=== PATIENT | female | born 1995 | race American Indian/Alaskan Native ===

== ENCOUNTER 2018-05-03 07:14 | Emergency (ER) | payer MEDICAID ==
[2018-05-03 07:24] VITALS: BP 148/96
[2018-05-03 07:52] LABS: Basophils # (Auto) 0.1 K/mm3 (0.0-0.1); Basophils % (Auto) 0.6 % (0.0-1.8); Eosinophils # (Auto) 0.2 K/mm3 (0.0-0.4); Eosinophils % (Auto) 1.7 % (0.0-4.3); Hemoglobin 14.1 gm/dl (10.1-14.3); Lymphocytes % (Auto) 9.6 % (13.4-35.0); Mean Corpuscular HGB Conc 34 % (30-34); Mean Corpuscular Hemoglobin 32 pg (28-32); Mean Corpuscular Volume 92 fl (79-97); Monocytes # (Auto) 0.7 K/mm3 (0.0-0.8); Monocytes % (Auto) 6.8 % (0.0-7.3); Platelet Count 264 K/mm3 (140-440); Red Blood Count 4.44 M/mm3 (3.65-5.03); Red Cell Distribution Width 13.1 % (13.2-15.2)
--- NOTE | 2018-05-03 08:03 | Emergency Department Report ---
ED Female HPI - General Chief complaint: Urogenital-Female Stated complaint: Pelvic Pain Time Seen by Provider: 05/03/18 07:46 Source: patient Mode of arrival: Ambulatory Limitations: No Limitations - History of Present Illness Initial comments: This is a 22-year-old female nontoxic, well nourished in appearance, no acute signs of distress presents to the ED with c/o of pelvic pain and vaginal discharge intermittent for 5 months. Patient also stated she has dysuria for 5 months as well. Patient denies any vaginal pain or swelling. Patient denies any vaginal ulcers or lesions. Patient denies any nausea, vomiting, chest pain , shortness of breathe, fever, chills, headache, back pain, numbness, tingling, stiff neck. Patient denies any urinary symptoms. Patient stated she is concerned about STD and wants empirical treatment. Patient denies any allergies or PMH. MD Complaint: vaginal discharge, dysuria, pelvic pain, possible STD -: month(s) (5) Radiation: non-radiating Severity: mild Severity scale (0 -10): 8 Quality: cramping Consistency: intermittent Improves with: none Worsens with: none Are you Now?: No Last Menstrual Period: 04/24/18 EDC: 01/29/19 Associated Symptoms: vaginal discharge, dysuria. denies: vaginal bleeding, abdominal pain, nausea/vomiting, fever/chills, headaches, loss of appetite, hematuria, rash, seizure, shortness of breath, syncope, weakness - Related Data Sexually active: Yes Previous Rx's Medication Instructions Recorded Last Taken Type Fluconazole [Diflucan] 150 mg PO ONCE #1 tablet 05/03/18 Unknown Rx Ibuprofen [Motrin] 600 mg PO Q8H PRN #30 tablet 05/03/18 Unknown Rx Allergies Allergy/AdvReac Type Severity Reaction Status Date / Time No Known Allergies Allergy Unverified 05/03/18 07:24 ED Review of Systems ROS: Stated complaint: Pelvic Pain Other details as noted in HPI Constitutional: denies: chills, fever Eyes: denies: eye pain, eye discharge, vision change ENT: denies: ear pain, throat pain Respiratory: denies: cough, shortness of breath, wheezing Cardiovascular: denies: chest pain, palpitations Endocrine: no symptoms reported Gastrointestinal: abdominal pain (pelvic). denies: nausea, vomiting, diarrhea Genitourinary: dysuria, discharge. denies: urgency, frequency, hematuria Musculoskeletal: denies: back pain, joint swelling, arthralgia Skin: denies: rash, lesions Neurological: denies: headache, weakness, paresthesias Psychiatric: denies: anxiety, depression Hematological/Lymphatic: denies: easy bleeding, easy bruising ED Past Medical Hx - Past Medical History Previous Medical History?: Yes Additional medical history: Vaginal delivery x 1 - Surgical History Past Surgical History?: No - Social History Smoking Status: Current Every Day Smoker Substance Use Type: Alcohol, Marijuana - Medications Home Medications: Home Medications Medication Instructions Recorded Confirmed Last Taken Type Fluconazole [Diflucan] 150 mg PO ONCE #1 tablet 05/03/18 Unknown Rx Ibuprofen [Motrin] 600 mg PO Q8H PRN #30 tablet 05/03/18 Unknown Rx ED Physical Exam - General Limitations: No Limitations General appearance: alert, in no apparent distress - Head Head exam: Present: atraumatic, normocephalic - Eye Eye exam: Present: normal appearance Pupils: Present: normal accommodation - ENT ENT exam: Present: normal exam, mucous membranes moist - Neck Neck exam: Present: normal inspection, full ROM. Absent: tenderness, meningismus, lymphadenopathy - Respiratory Respiratory exam: Present: normal lung sounds bilaterally. Absent: respiratory distress, wheezes, rales, rhonchi, stridor, chest wall tenderness, accessory muscle use, decreased breath sounds, prolonged expiratory - Cardiovascular Cardiovascular Exam: Present: regular rate, normal rhythm, normal heart sounds. Absent: irregular rhythm, systolic murmur, diastolic murmur, rubs, gallop - GI/Abdominal GI/Abdominal exam: Present: soft, tenderness (pelvic bilateral), normal bowel sounds. Absent: distended, guarding, rebound, rigid, diminished bowel sounds - Expanded GI/Abdominal Exam Expanded GI/Abdominal exam: Absent: psoas sign, obturator sign, heel tap sign, Rosen's sign, Rovsing's sign, tenderness at Mcburney's Point, ascites - Rectal Rectal exam: Present: deferred - External exam: Present: normal external exam, other (manager sourcing Guerda RN present during exam). Absent: erythema, swelling, lesions, lacerations, ecchymosis, bleeding Speculum exam: Present: normal speculum exam, cervical discharge, other ( manager sourcing Guerda RN present during exam). Absent: erythema, vaginal discharge, vaginal bleeding, foreign body, tissue, laceration Bi-manual exam: Present: normal bi-manual exam, other (manager sourcing Guerda RN present during exam). Absent: cervical motion tendernes, adnexal tenderness, adnexal mass, uterine enlargement, uterine tenderness - Extremities Exam Extremities exam: Present: normal inspection, full ROM, normal capillary refill - Back Exam Back exam: Present: normal inspection, full ROM. Absent: tenderness, CVA tenderness (R), CVA tenderness (L), muscle spasm, paraspinal tenderness, vertebral tenderness, rash noted - Neurological Exam Neurological exam: Present: alert, oriented X3, normal gait - Psychiatric Psychiatric exam: Present: normal affect, normal mood - Skin Skin exam: Present: warm, dry, intact, normal color. Absent: rash ED Course Vital Signs 05/03/18 07:18 Temperature 98.5 F Pulse Rate 116 H Respiratory 20 Rate Blood Pressure 148/96 O2 Sat by Pulse 98 Oximetry - Reevaluation(s) Reevaluation #1: 05/03/18 08:06 Patient is speaking in full sentences with no signs of distress noted. ED Medical Decision Making - Lab Data Result diagrams: 05/03/18 07:41 05/03/18 07:40 - Medical Decision Making This is a 22-year-old female that presents with possible STD, yeast, and bilateral ovarian cysts. Patient is stable was examined by me. There is no abdominal tenderness. No pelvic pain. UA obtained. Wet prep obtained. Gonorrhea chlamydia swab pending. US pelvic and transvaginal obtained and dictated by the radiologist. Pt is notified of the US reprot. Patient was instructed to return in 2 days for GC results. Patient wanted empirical treatment so patient received 1 g Rocephin and 1 g of azithromycin by mouth. Patient was instructed to Follow-up with a primary care doctor in 3-5 days or if symptoms worsen and continue return to emergency room as soon as possible. At time of discharge, the patient does not seem toxic or ill in appearance. No acute signs of distress noted. Patient agrees to discharge treatment plan of care. No further questions noted by the patient. Critical care attestation.: If time is entered above; I have spent that time in minutes in the direct care of this critically ill patient, excluding procedure time. ED Disposition Clinical Impression: Yeast vaginitis, Possible exposure to STD Ovarian cyst Qualifiers: Laterality: bilateral Qualified Code(s): N83.201 - Unspecified ovarian cyst, right side; N83.202 - Unspecified ovarian cyst, left side Disposition: TO HOME OR SELFCARE Is pt being admited?: No Does the pt Need Aspirin: No Condition: Stable Instructions: Vulvovaginal Candidiasis (ED), Ovarian Cyst (ED) Additional Instructions: Follow-up with a primary care/sales center manager doctor in 3-5 days or if symptoms worsen and continue return to emergency room as soon as possible. Prescriptions: Fluconazole [Diflucan] 150 mg PO ONCE #1 tablet Ibuprofen [Motrin] 600 mg PO Q8H PRN #30 tablet PRN Reason: Pain Referrals: PRIMARY CAREMD [Primary Care Provider] - 3-5 Days SUGEY JURADO MD [Staff Physician] - 3-5 Days VIRY KELLY MD [Staff Physician] - 3-5 Days [facility] [Provider Group] - 3-5 Days Forms: Work/School Release Form(ED)
[2018-05-03] MEDS ORDERED: ZITHROMAX PO ONE (08:22)
[2018-05-03] MEDS ORDERED: ROCEPHIN IM ONE (08:22)
[2018-05-03] MEDS ORDERED: XYLOCAINE 1% MPF 5 mL INFILTRATI ONE (08:22)
[2018-05-03 08:42] LABS: Alanine Aminotransferase 13 units/L (7-56); Albumin 3.9 g/dL (3.9-5); BUN/Creatinine Ratio 9; Blood Urea Nitrogen 7 mg/dL (7-17); Calcium 9.1 mg/dL (8.4-10.2); Hemolysis Index 8
[2018-05-03 08:48] LABS: Bilirubin,Urine NEG (Negative); Blood,Urine NEG (Negative); Color,Urine Yellow (Yellow); Mucus,Urine 1+ /HPF; Protein,Urine <15 mg/dL mg/dL (Negative)
[2018-05-03] MEDS ORDERED: MOTRIN PO ONE (09:55)
[2018-05-03] MEDS ORDERED: ZOFRAN ODT PO ONE (09:55)
[2018-05-03] MEDS ORDERED: TORADOL IM ONE (10:05)
--- NOTE | 2018-05-03 10:17 | Ultrasound Report ---
ULTRASOUND PELVIC COMPLETE ULTRASOUND TRANSVAGINAL HISTORY: Pelvic pain. COMPARISON: None. TECHNIQUE: Transabdominal and transvaginal ultrasound with color doppler interrogation. FINDINGS: Uterus: The uterus is anteverted. The uterus measures 8.5 x 3.9 x 5.8 cm. No evidence for uterine fibroids. The cervix is unremarkable. Endometrium: 4 mm. No abnormality noted. Right ovary: 3.2 x 2.8 x 2.5 cm. A 1.6 cm simple right ovarian cyst is identified. Left ovary: 2.7 x 1.7 x 2.2 cm. A 1.3 cm simple left ovarian cyst is identified. No pelvic fluid or mass is identified. Normal color doppler interrogation. IMPRESSION: Small bilateral ovarian cysts as described.
== END 2018-05-03 10:57 | disposition home or self-care (01) ==
LOC: ED 07:14
DX: N83.201 Unspecified ovarian cyst, right side (principal); N83.202 Unspecified ovarian cyst, left side; B37.3 Candidiasis of vulva and vagina; F17.200 Nicotine dependence, unspecified, uncomplicated; F12.90 Cannabis use, unspecified, uncomplicated
CPT/HCPCS: 36415; 76830; 76856; 80053; 81001; 84703; 85025; 87210; 87591; 96372; 99284; J0696; J1885; Q0162

== ENCOUNTER 2019-02-21 20:14 | Inpatient (IN) | payer OTHER, MEDICAID ==
[2019-02-21] MEDS ORDERED: CERVIDIL VG ONE (21:35)
[2019-02-21] MEDS: LACTATED RINGERS 1,000 ML IV SCH (22:45)
[2019-02-21 23:06] LABS: Hematocrit 35.2 % (30.3-42.9); Hemoglobin 12.1 gm/dl (10.1-14.3); Mean Corpuscular HGB Conc 35 % (30-34); Mean Corpuscular Volume 89 fl (79-97); Platelet Count 271 K/mm3 (140-440); Red Blood Count 3.97 M/mm3 (3.65-5.03); Red Cell Distribution Width 13.3 % (13.2-15.2)
[2019-02-21] MEDS: STADOL IV PRN (23:34)
[2019-02-22] MEDS ORDERED: AMPICILLIN/NS 2 GM/100 ML 2 GM/100 ML BAG IV ONE ×2 (02:37)
[2019-02-22] MEDS: STADOL IV PRN ×2 (02:52→09:00)
[2019-02-22] MEDS: LACTATED RINGERS 1,000 ML IV SCH (05:22)
[2019-02-22] MEDS ORDERED: AMPICILLIN 1 GM in NACL 0.9% 50 ML IV SCH (07:00)
[2019-02-22] MEDS: AMPICILLIN/NS 1 GM/50 ML 1 GM/50 ML BAG IV SCH ×2 (07:20→11:23)
--- NOTE | 2019-02-22 08:14 | History and Physical Report ---
History of Present Illness Date of examination: 02/22/19 Date of admission: 02/21/19 20:14 Chief complaint: IOL History of present illness: 23y/o @ Past History Past Medical History: no pertinent history Past Surgical History: no surgical history Social history: single - Obstetrical History Expected Date of Delivery: 02/26/19 Actual Gestation: 39 Week(s) 3 Day(s) : 3 Para: 1 Hx # Term Pregnancies: 1 Number of Pregnancies: 0 Spontaneous Abortions: 0 Induced : 1 Number of Living Children: 1 Medications and Allergies Allergies Allergy/AdvReac Type Severity Reaction Status Date / Time No Known Allergies Allergy Unverified 05/03/18 07:24 Home Medications Medication Instructions Recorded Confirmed Last Taken Type Fluconazole [Diflucan] 150 mg PO ONCE #1 tablet 05/03/18 Unknown Rx Ibuprofen [Motrin] 600 mg PO Q8H PRN #30 tablet 05/03/18 Unknown Rx Active Meds: Active Medications Butorphanol Tartrate (Stadol) 2 mg IV Q2H PRN PRN Reason: Labor Pain Last Admin: 02/22/19 02:52 Dose: 2 mg Documented by: Lactated Ringer's (Lactated Ringers) 1,000 mls @ 125 mls/hr IV DIRECT ELBA Last Admin: 02/22/19 05:22 Dose: 125 mls/hr Documented by: Ampicillin Sodium (Ampicillin/Ns 1 Gm/50 Ml) 1 gm in 50 mls @ 100 mls/hr IV Q4H ELBA Review of Systems All systems: negative Genitourinary: contractions, no leakage of fluid - Vital Signs Vital signs: Vital Signs Pulse BP 110 H 110/53 02/21/19 21:28 02/21/19 21:28 Temp Pulse Resp BP Pulse Ox 98.1 F 92 H 16 138/65 02/21/19 22:04 02/22/19 00:50 02/21/19 22:04 02/22/19 00:50 - Physical Exam Breasts: Positive: deferred Cardiovascular: Regular rate Lungs: Positive: Clear to auscultation Abdomen: Positive: normal appearance Results Result Diagrams: 02/21/19 22:30 Abnormal lab results 02/21/19 Range/Units 22:30 WBC 12.2 H (4.5-11.0) K/mm3 MCHC 35 H (30-34) % All other labs normal. Assessment and Plan - Patient Problems (1) Term Current Visit: Yes Status: Acute Plan to address problem: patient admitted for induction of labor secondary to obesity
[2019-02-22] MEDS ORDERED: BENADRYL ONE (08:51)
[2019-02-22] MEDS ORDERED: XYLOCAINE 2% INFILTRATI NR (09:00)
[2019-02-22] MEDS ORDERED: BRETHINE SUB-Q PRN (09:00)
[2019-02-22] MEDS ORDERED: MINERAL OIL PO PRN (09:00)
[2019-02-22] MEDS ORDERED: BENADRYL IV PRN (09:00)
[2019-02-22] MEDS ORDERED: BENADRYL PO PRN ×2 (09:00→16:02)
[2019-02-22] MEDS ORDERED: BRETHINE IVP PRN (09:00)
[2019-02-22] MEDS ORDERED: LACTATED RINGERS 1,000 ML IV SCH (09:00)
[2019-02-22] MEDS ORDERED: PITOCin/NS 30 UNIT/500ML 30 UNITS/500 ML BAG IV SCH (09:00)
[2019-02-22] MEDS ORDERED: PITOCin/NS 20 UNIT/1000ML DRIP 20 UNITS/1,000 ML BAG IV SCH (09:00)
--- NOTE | 2019-02-22 09:45 | Anesthesia Consultation ---
Anesthesia Consult and Med Hx - Airway Anesthetic Teeth Evaluation: Good ROM Head & Neck: Adequate Mental/Hyoid Distance: Adequate Mallampati Class: Class I Intubation Access Assessment: Good - Pulmonary Exam CTA: Yes - Cardiac Exam Cardiac Exam: RRR - Pre-Operative Health Status ASA Pre-Surgery Classification: ASA2 Proposed Anesthetic Plan: Epidural - Pulmonary Hx Asthma: No - Cardiovascular System Hx Hypertension: No - Central Nervous System Hx Seizures: No Hx Psychiatric Problems: Yes (ANXIETY AND DEPRESSION) - Endocrine Hx Renal Disease: No Hx Hypothyroidism: No Hx Hyperthyroidism: (ENLARGED THYROID) - Hematic Hx Anemia: No Hx Sickle Cell Disease: No - Other Systems Hx Alcohol Use: No
--- NOTE | 2019-02-22 09:45 | Anesthesia Day of Surgery ---
Anesthesia Day of Surgery - Day of Surgery Patient Examined: Yes Patient H&P Reviewed: Yes Patient is NPO: Yes Beta Blockers: No Cardiac Clearance: No Pulmonary Clearance: No Travis's Test: N/A
[2019-02-22] MEDS ORDERED: MARCAINE 0.25% INFILTRATI ONE (09:49)
[2019-02-22] MEDS ORDERED: fentaNYL-BUPIV 2 MCG/ML-0.125% 200 MCG/100 ML BAG EPIDURAL SCH (10:30)
[2019-02-22] MEDS ORDERED: NARCAN 2 MG/2 ML IV PRN (10:30)
--- NOTE | 2019-02-22 11:58 | Post Anesthesia Evaluation ---
- Post Anesthesia Evaluation Patient Participated: Yes Airway Patent: Yes Stable Respiratory Function: Yes Nausea/Vomiting: No Temp > 96.8F: Yes Pain Manageable: Yes Adequeate Hydration: Yes Anesthesia Complications: No Block Receding Appropriately: Yes Patient on Ventilator: No
--- NOTE | 2019-02-22 12:02 | Procedure Note ---
OB Delivery Note - Delivery Date of Delivery: 02/22/19 Surgeon: SAPPHIRE APARICIO Estimated blood loss: other (150ml) - Vaginal Delivery presentation: vertex Intrapartum events: meconium Delivery augmentation: rupture of membranes Delivery monitor: external FHT, internal uterine Route of delivery: Delivery placenta: manual Episiotomy: none Delivery laceration: none Anesthesia: epidural Delivery comments: The patient progressed to complete complete +2 and pushed to deliver a liveborn male infant with Apgars of 8 and 9 weight 8 lbs. 14 oz. There was evidence of meconium stained fluid with the delivery. The infant was delivered and the cord was clamped and cut 2 and the infant was taken immediately to the warmer for further evaluation by the ICU staff. With delivery of the placenta there was avulsion of the cord and the placenta had to be manually extracted. The patient did not sustain any lacerations. Estimated blood loss of 150 mL. - Infant A at 1 minute: 8 at 5 minutes: 9 Infant Gender: Male (8 8 lbs. 14 oz.)
[2019-02-22] MEDS ORDERED: ZOFRAN IV PRN (16:02)
[2019-02-22] MEDS ORDERED: DULCOLAX PR PRN (16:02)
[2019-02-22] MEDS ORDERED: MILK OF MAGNESIA PO PRN (16:02)
[2019-02-22] MEDS ORDERED: PHENERGAN PO PRN (16:02)
[2019-02-22] MEDS ORDERED: TUCKS PAD TP PRN (16:02)
[2019-02-22] MEDS ORDERED: LANSINOH TP PRN (16:02)
[2019-02-22] MEDS ORDERED: TYLENOL PO PRN (16:02)
[2019-02-22] MEDS ORDERED: PHENERGAN PR PRN (16:02)
[2019-02-22] MEDS: IBUPROFEN PO SCH ×2 (16:31→22:13)
[2019-02-22] MEDS: NORCO 5/325 PO PRN (16:34)
[2019-02-22] MEDS ORDERED: SODIUM CHLORIDE FLUSH SYRINGE 10 ML IV SCH (17:00)
[2019-02-23] MEDS: NORCO 5/325 PO PRN ×2 (02:05→21:48)
[2019-02-23] MEDS: IBUPROFEN PO SCH ×4 (04:01→23:23)
[2019-02-23] MEDS ORDERED: BOOSTRIX IM ONE (06:00)
[2019-02-23 07:47] LABS: Hematocrit 30.9 % (30.3-42.9); Hemoglobin 10.7 gm/dl (10.1-14.3)
--- NOTE | 2019-02-23 11:12 | Progress Note ---
Assessment and Plan A: PPD#1 s/p at term, Obesity P: Routine care. Anticipate discharge tomorrow. Subjective - Subjective Date of service: 02/23/19 Principal diagnosis: s/p at term Interval history: Patient reports being tired but otherwise feels well Patient reports: appetite normal, pain well controlled, ambulating normally, no dizzy ambulation : doing well, bottle feeding Objective - Vital Signs Latest vital signs: Vital Signs Temp Pulse Resp BP BP Pulse Ox 02/23/19 08:30 98.2 F 89 20 112/79 02/23/19 01:26 98.5 F 84 20 122/58 99 02/22/19 16:52 99.0 F 75 20 139/64 98 02/22/19 13:40 98.6 F 81 20 143/73 99 02/22/19 12:52 82 128/66 02/22/19 12:50 16 100 02/22/19 12:30 16 02/22/19 12:25 102 H 100 02/22/19 12:20 84 100 02/22/19 12:15 83 16 99 02/22/19 12:11 86 111/58 02/22/19 12:10 87 98 02/22/19 12:05 90 100 02/22/19 12:00 98.9 F 91 H 16 100 02/22/19 11:58 187 H 99/50 02/22/19 11:57 98 H 53/33 02/22/19 11:55 100 H 99 02/22/19 11:50 101 H 100 02/22/19 11:45 92 H 100 02/22/19 11:41 96 H 135/61 02/22/19 11:40 110 H 100 02/22/19 11:35 115 H 100 02/22/19 11:30 111 H 100 02/22/19 11:25 102 H 100 02/22/19 11:20 101 H 100 02/22/19 11:18 100 H 147/68 02/22/19 11:15 108 H 100 Intake and Output 02/22/19 02/23/19 02/23/19 22:59 06:59 14:59 Intake Total 720 240 360 Output Total 650 500 600 Balance 70 -260 -240 Intake: Oral 240 240 360 Intake, Free Water 480 Output: Urine 650 500 600 Void 650 500 600 Other: Total, Intake Amount 240 240 360 Total, Output Amount 650 500 600 - Exam Breasts: Present: deferred Cardiovascular: Present: Regular rate Lungs: Present: Clear to auscultation Abdomen: Present: soft (obese ) Uterus: Present: fundal height at umbilicus Extremities: Present: edema (trace )
[2019-02-23] MEDS ORDERED: IBUPROFEN PO SCH (11:13)
--- NOTE | 2019-02-23 11:36 | Discharge Summary ---
Providers - Providers Date of Admission: 02/21/19 20:14 Date of discharge: 02/24/19 Attending physician: SAPPHIRE APARICIO Primary care physician: SAPPHIRE APARICIO Hospitalization Reason for admission: induction of labor Delivery: Procedure details: Please see delivery note Episiotomy: none Laceration: none Other procedures: none complications: none Discharge diagnosis: IUP at term delivered [place] baby: male Hospital course: The patient was admitted for induction of labor and ultimately underwent a spontaneous vaginal delivery which she tolerated well. Her course was uncomplicated and she met discharge criteria on postoperative day #2. She will follow up in the office in 4 weeks. Condition at discharge: Stable Disposition: - TO HOME OR SELFCARE - Discharge Diagnoses (1) Term of male Status: Acute (2) Obesity Status: Acute Qualifiers: Obesity type: unspecified obesity type Obesity classification: adult class 2 (BMI 35 - 39.9) Serious obesity comorbidity presence: unspecified whether serious comorbidity present Body mass index: BMI 35.0-35.9 Qualified Code(s): E66.9 - Obesity, unspecified; Z68.35 - Body mass index (BMI) 35.0-35.9, adult Plan - Discharge Medications Prescriptions: Ibuprofen [Motrin] 800 mg PO Q8HR PRN #30 tablet PRN Reason: Pain , Severe (7-10) HYDROcodone/APAP 5-325 [[place] 5/325] 1 each PO Q6HR PRN #20 tablet PRN Reason: Pain - Provider Discharge Summary Activity: routine, no sex for 6 weeks, no heavy lifting 4 weeks, no strenuous exercise Diet: routine Instructions: routine Additional instructions: [] Smoking cessation referral if applicable(refer to patient education folder for contact #) [] Refer to [facility] Booklet Call your doctor immediately for: * Fever > 100.5 * Heavy vaginal bleeding ( >1 pad per hour) * Severe persistent headache * Shortness of breath * Reddened, hot, painful area to leg or breast * Drainage or odor from incision. * Keep incision clean and dry at all times and follow doctor's instructions regarding bathing/showering - Follow up plan Follow up: LUZ SANDOVAL CNM [Advanced Practice Nurse] - 03/22/19 (Please call to schedule your appt. Please schedule your son's circumcision before he is one month old. )
[2019-02-24] MEDS: NORCO 5/325 PO PRN ×3 (03:51→09:35)
[2019-02-24] MEDS: IBUPROFEN PO SCH (05:30)
[2019-02-24 14:12] VITALS: BP 119/63
== END 2019-02-24 14:30 | disposition home or self-care (01) | DRG 807 ==
LOC: LD 20:14 → OB 02-22 13:45
PROVIDERS: ADMIT Obstetrics & Gynecology; ATTEND Obstetrics & Gynecology
PROC: 10E0XZZ Delivery of Products of Conception, External Approach (ICD-10-PCS; principal; 2019-02-22)
PROC: 3E0R3BZ Introduction of Anesthetic Agent into Spinal Canal, Percutaneous Approach (ICD-10-PCS; 2019-02-22)
PROC: 00HU33Z Insertion of Infusion Device into Spinal Canal, Percutaneous Approach (ICD-10-PCS; 2019-02-22)
DX: O77.0 Labor and delivery complicated by meconium in amniotic fluid (principal); Z37.0 Single live birth; O99.344 Other mental disorders complicating childbirth; F41.9 Anxiety disorder, unspecified; O99.214 Obesity complicating childbirth; E66.9 Obesity, unspecified; Z3A.39 39 weeks gestation of pregnancy
CPT/HCPCS: 36415; 85014; 85018; 85027; 86592; 86850; 86900; 86901; 90471; 90715; G0378; J0290; J0595; J1200; J2590; J7120